=== PATIENT | female | born 1985 | race Caucasian/White ===

== ENCOUNTER 2017-01-08 18:53 | Emergency (ER) | payer MEDICAID, MEDICARE ==
[~2017-01-08] VITALS: Ht 160 cm; Wt 68.0 kg
[~2017-01-08 18:53] MED LIST: PREN-385 PO
[2017-01-08 19:45] VITALS: BP 119/70
[2017-01-08 20:24] LABS: BASOPHILS # (AUTO) 0.1 K/uL (0.00-0.22); BASOPHILS % (AUTO) 0.8 % (0.0-2.0); EOSINOPHILS # (AUTO) 0.3 K/uL (0-0.4); EOSINOPHILS % (AUTO) 3.3 % (0.0-4.0); HEMATOCRIT 38.5 % (36-48); HEMOGLOBIN 12.9 g/dL (12.0-16.0); LYMPHOCYTES # (AUTO) 3.6 K/uL (2.5-16.5); LYMPHOCYTES % (AUTO) 37.5 % (20.5-51.1); MEAN CORPUSCULAR HEMOGLOBIN 30 pg (27-31); MEAN CORPUSCULAR HGB CONC 34 g/dL (33-37); MEAN CORPUSCULAR VOLUME 90 fL (80-94); MONOCYTES # (AUTO) 0.6 K/uL (0.8-1.0); MONOCYTES % (AUTO) 6.4 % (1.7-9.3); PLATELET COUNT (AUTO) 345 K/uL (140-450); RED BLOOD CELL COUNT(AUTO) 4.28 MIL/uL (4.20-5.40); RED CELL DISTRIBUTION WIDTH 12.5 % (11.6-13.7); WHITE BLOOD COUNT (AUTO) 9.6 K/uL (4.8-10.8)
[2017-01-08 20:36] LABS: ANION GAP 10.5 (8-16); CALCIUM 8.8 mg/dL (8.5-10.1); CREATININE 0.8 mg/dL (0.6-1.3); POTASSIUM 3.5 mmol/L (3.5-5.1)
[2017-01-08 20:43] LABS: ALBUMIN 3.8 g/dL (3.4-5.0); TOTAL BILIRUBIN 0.2 mg/dL (0.0-1.0); TOTAL PROTEIN, SERUM 7.6 g/dL (6.4-8.2)
--- NOTE | 2017-01-08 22:46 | NUR ---
PATIENT PRESENTS TO ED WITH C/O DIZZINESS, NAUSEA AND VOMITTING BUT NO DIARRHEA X 3 DAYS. SKIN IS PINK/WARM/DRY; AAOX4 WITH EVEN AND STEADY GAIT; LUNGS CLEAR BL; HR EVEN AND REGULAR; PT DENIES ANY FEVER, CP, SOB, OR COUGH AT THIS TIME; PATIENT STATES PAIN OF 0/10 AT THIS TIME; VSS; PATIENT POSITIONED FOR COMFORT; HOB ELEVATED; BEDRAILS UP X2; BED DOWN. ER MD MADE AWARE OF PT STATUS.
--- NOTE | 2017-01-08 23:28 | NUR ---
DR BURNS AT BEDSIDE
[2017-01-08] MEDS ORDERED: KETOROLAC 60 MG/2 ML VIAL IM ONE (23:35)
[2017-01-08] MEDS ORDERED: MECLIZINE 25 MG TAB PO ONE (23:35)
[2017-01-09 00:10] VITALS: BP 119/71
--- NOTE | 2017-01-09 00:10 | NUR ---
Patient discharged with v/s stable. Written and verbal after care instructions given and explained. Patient alert, oriented and verbalized understanding of instructions. Ambulatory with steady gait. All questions addressed prior to discharge. ID band removed. Patient advised to follow up with PMD. Rx of MECLIZINE AND ZOFRAN given. Patient educated on indication of medication including possible reaction and side effects. Opportunity to ask questions provided and answered.
== END 2017-01-09 00:10 | disposition home or self-care (01) ==
LOC: MED 18:53
DX: R42 Dizziness and giddiness (principal); R11.2 Nausea with vomiting, unspecified; R68.83 Chills (without fever)
CPT/HCPCS: 36415; 80053; 81002; 81025; 85025; 96372; 99284; J1885; J8597

== ENCOUNTER 2023-03-20 22:27 | Emergency (ER) | payer BC, MEDICARE ==
[~2023-03-20] VITALS: Ht 162.6 cm; Wt 68.0 kg
[2023-03-20 22:40] VITALS: BP 126/90; PULSE 80; RESP 16; TEMP 97.8; O2SAT 99
--- NOTE | 2023-03-20 22:40 | NUR ---
to bed ambulatory
[2023-03-20 23:00] VITALS: TEMP 97.8
--- NOTE | 2023-03-20 23:15 | NUR ---
PATIENT IS A 37/F WHO CAME IN DUE TO 3 DAYS HISTORY OF GENERALIZED, THROBBING HEADACHE, 10/10, INTERMITTENT, ASSOCIATED WITH GENERALIZED WEAKNESS & DIZZINESS. NO NAUSEA/VOMITING, FEVER, COUGH/COLDS NOTED. PATIENT TOOK TYLENOL AROUND 1500. PMHX: CRYSTAL CHOW
--- NOTE | 2023-03-20 23:26 | NUR ---
DR BURNS AT BEDSIDE FOR EXAM
[2023-03-20] MEDS ORDERED: KETOROLAC 60 MG/2 ML VIAL IM ONE (23:30)
[2023-03-20] MEDS ORDERED: MECLIZINE 25 MG TAB PO ONE (23:30)
[2023-03-21] MEDS ORDERED: MORPHINE SULFATE 4 MG/ML SYR IM ONE (00:25)
[2023-03-21] MEDS ORDERED: IBUP-2213 PO (00:58)
[2023-03-21] MEDS ORDERED: MECL-303 PO (00:58)
[2023-03-21] MEDS ORDERED: HYDR-5191 PO (00:58)
[2023-03-21 01:33] VITALS: BP 113/80; PULSE 77; RESP 15; O2SAT 96
--- NOTE | 2023-03-21 01:33 | NUR ---
Patient discharged with v/s stable. Written and verbal after care instructions given and explained. Patient alert, oriented and verbalized understanding of instructions. Ambulatory with steady gait. All questions addressed prior to discharge. ID band removed. Patient advised to follow up with PMD. Rx of Meclizine, Ibuprofen, Hydrocodone-Acetaminophen given. Patient educated on indication of medication including possible reaction and side effects. Opportunity to ask questions provided and answered.
== END 2023-03-21 01:33 | disposition home or self-care (01) ==
LOC: MED 22:27
DX: R51.9 Headache, unspecified (principal); R42 Dizziness and giddiness; M54.2 Cervicalgia; Z79.899 Other long term (current) drug therapy
CPT/HCPCS: 81002; 81025; 96372; 99284; J1885; J2270; J8597

== ENCOUNTER 2024-01-16 21:26 | Emergency (ER) | payer BC ==
[~2024-01-16] VITALS: Ht 162.6 cm; Wt 75.7 kg
[~2024-01-16 21:26] MED LIST changes: +HYDR-5071 PO; +IBUP-2213 PO; +MECL-303 PO
[2024-01-16 21:36] VITALS: BP 138/96; PULSE 95; RESP 18; TEMP 97.6; O2SAT 99
[2024-01-16 21:40] VITALS: BP 138/96; PULSE 95; RESP 18; TEMP 97.6; O2SAT 99
[2024-01-16] MEDS: KETOROLAC 60 MG/2 ML VIAL IM ONE (21:58)
[2024-01-16] MEDS: ONDANSETRON 4 MG ODT PO ONE (22:01)
[2024-01-16] MEDS ORDERED: ONDA8TAB87 PO (22:02)
[2024-01-16] MEDS ORDERED: OMEP40EC24 PO (22:02)
== END 2024-01-16 22:12 | disposition home or self-care (01) ==
LOC: MED 21:26
DX: R10.13 Epigastric pain (principal); R11.2 Nausea with vomiting, unspecified; Z79.899 Other long term (current) drug therapy
CPT/HCPCS: 96372; 99283; J1885; Q0162